=== PATIENT | female | born 1990 | race Caucasian/White ===

== ENCOUNTER 2021-01-28 10:16 | Emergency (ER) | payer MEDICARE ==
[2021-01-28] MEDS ORDERED: CIPRODEX OTIC7.5 ML AU (11:03)
[2021-01-28] MEDS ORDERED: ANTIVERT25 MG PO (11:03)
[2021-01-28] MEDS ORDERED: AZITHROMYCIN250 MG PO (11:03)
[2021-01-28] MEDS ORDERED: ONDANSETRON HCL4 MG PO (11:17)
== END 2021-01-28 12:23 | disposition home or self-care (01) ==
LOC: FER 10:16
DX: H66.91 Otitis media, unspecified, right ear (principal); H74.01 Tympanosclerosis, right ear; H61.22 Impacted cerumen, left ear; F17.210 Nicotine dependence, cigarettes, uncomplicated; Z98.890 Other specified postprocedural states; Z88.0 Allergy status to penicillin; Z88.2 Allergy status to sulfonamides; Z91.040 Latex allergy status; Z86.73 Personal history of transient ischemic attack (TIA), and cerebral infarction without residual deficits
CPT/HCPCS: 70450; J1885; J2405; Q0162